=== PATIENT | male | born 1970 | race Caucasian/White ===

== ENCOUNTER 2024-05-03 09:46 | Emergency (ER) | payer OTHER, SELFPAY ==
[2024-05-03] VITALS (7 sets, daily range): BP systolic 108–136; BP diastolic 72–99
[2024-05-03 09:54] LABS: Glucose - Point of Care 128 mg/dl (70-99)
--- NOTE | 2024-05-03 10:33 | ED.GENMED ---
History of Present Illness
<Calin Pedraza Jr., PA-C - Last Filed: 05/03/24 17:40>
General
Chief Complaint: Fainting/Passed Out
Source: patient
Exam Limitations: none
Time Seen by Provider: 05/03/24 10:55
Nursing documentation reviewed up to this point in time: agreed with
History of Present Illness
History of Present Illness:
53-year-old male presenting to the emergency department today with concerns of syncopal episode while working. Was standing upright felt lightheaded passed out did hit his head. Patient is on Coumadin. Denies any chest pain shortness of breath
proceeding. Denies nausea vomiting numbness weakness.
Past History
<Laly Khoury BRASS PICKLER - Last Filed: >
Past History
ED Past Medical History: GERD, HTN and Other (Antiphospholipid antibody syndrome)
ED Past Surgical History: Orthopedic
Social History
Tobacco: Non-smoker
Alcohol: None
Drug: None
Personal:
Living: with family
Employment: Employed
Family History
Family History: Hypertension
Review of Systems
<Calin Pedraza Jr., PA-C - Last Filed: 05/03/24 17:40>
Review of Systems
Allergies reviewed?: Yes
All Other Systems: ROS reviewed and negative except as documented in HPI and ROS
Phy Exam
<Calin Pedraza Jr., PA-C - Last Filed: 05/03/24 17:40>
Physical Exam
Physical Exam:
GENERAL: Alert , in no apparent distress
EYE: pupils equal and reactive
NECK: Supple, no significant adenopathy.
ENT: o/p clr, mmm.
CARDIAC: Regular rate and rhythm .
LUNGS: Clear breath sounds bilaterally, no acute respiratory distress, no wheezes/rales/rhonchi
ABDOMEN: Soft, without focal tenderness, no r/g, no cvat
NEUROLOGICAL: Alert and oriented, no focal neuro deficits
SKIN: Warm and dry, skin intact.
MUSCULOSKELETAL: No edema, well perfused.
PSYCH: Normal and appropriate interaction.
Course
<Calin Pedraza Jr., JAILENE - Last Filed: 05/03/24 17:40>
Orders/Labs/Results
Orders:
Orders
05/03/24
Electrocardiogram (*1) Stat
Reason for Study: Chest Pain
Comment: DONE NO ORDER ENTERED
05/03/24 10:[address] [CT Head W/o Iv Contrast] Urgent
Comment:
Reason For Exam: fall on thinners
05/03/24 11:13
Complete Blood Count/With Diff Urgent
Comprehensive Metabolic Panel Urgent
Troponin I Urgent
05/03/24 12:14
Prothrombin Time Urgent
05/03/24 12:31
CT Head & Neck Angio W/wo IV Urgent
Comment:
Reason For Exam: neck pain right side, syncope today tinglingleg
05/03/24 16:48
EKG [Electrocardiogram (*1)] Urgent
Reason for Study: Other
Other Reason for Exam: repeat trop
EKG- Treatment ONCE
05/03/24 16:51
Troponin I Urgent
Abnormal Lab Results
05/03/24 05/03/24 05/03/24
09:53 11:13 12:14
WBC 12.5 H 10^3/uL
(4.8-10.8)
Abs Immat Gran (auto) 0.1 H 10^3/uL
(0-0.05)
Absolute Neuts (auto) 9.8 H 10^3/uL
(1.4-6.5)
Absolute Monos (auto) 0.8 H 10^3/uL
(0.1-0.6)
Neutrophils % 78.4 H %
(42.2-75.2)
Lymphocytes % 13.3 L %
(20.5-51.1)
PT 46.9 H Sec
(11.4-14.6)
INR 5.17 H*
Glucose 106 H mg/dl
(70-99)
POC Glucose 128 H mg/dl
(70-99)
05/03/24 11:13
05/03/24 11:13
Vital Signs
Initial and Last Documented VS:
Initial Vital Signs
Temp Pulse Resp BP Pulse Ox
98.5 F 63 18 108/72 99
05/03/24 10:09 05/03/24 10:09 05/03/24 10:09 05/03/24 10:09 05/03/24 10:09
Last Documented Vital Signs
Temp Pulse Resp BP Pulse Ox
98.5 F 62 17 122/83 95
05/03/24 10:09 05/03/24 16:45 05/03/24 16:45 05/03/24 16:00 05/03/24 16:45
<Laly Khoury, BRASS PICKLER - Last Filed: >
Orders/Labs/Results
Orders:
Orders
05/03/24
Electrocardiogram (*1) Stat
Reason for Study: Chest Pain
Comment: DONE NO ORDER ENTERED
05/03/24 10:[address] [CT Head W/o Iv Contrast] Urgent
Comment:
Reason For Exam: fall on thinners
05/03/24 11:13
Complete Blood Count/With Diff Urgent
Comprehensive Metabolic Panel Urgent
Troponin I Urgent
05/03/24 12:14
Prothrombin Time Urgent
05/03/24 12:31
CT Head & Neck Angio W/wo IV Urgent
Comment:
Reason For Exam: neck pain right side, syncope today tinglingleg
05/03/24 16:48
EKG [Electrocardiogram (*1)] Urgent
Reason for Study: Other
Other Reason for Exam: repeat trop
EKG- Treatment ONCE
05/03/24 16:51
Troponin I Urgent
Abnormal Lab Results
05/03/24 05/03/24 05/03/24
09:53 11:13 12:14
WBC 12.5 H 10^3/uL
(4.8-10.8)
Abs Immat Gran (auto) 0.1 H 10^3/uL
(0-0.05)
Absolute Neuts (auto) 9.8 H 10^3/uL
(1.4-6.5)
Absolute Monos (auto) 0.8 H 10^3/uL
(0.1-0.6)
Neutrophils % 78.4 H %
(42.2-75.2)
Lymphocytes % 13.3 L %
(20.5-51.1)
PT 46.9 H Sec
(11.4-14.6)
INR 5.17 H*
Glucose 106 H mg/dl
(70-99)
POC Glucose 128 H mg/dl
(70-99)
05/03/24 11:13
05/03/24 11:13
Vital Signs
Initial and Last Documented VS:
Initial Vital Signs
Temp Pulse Resp BP Pulse Ox
98.5 F 63 18 108/72 99
05/03/24 10:09 05/03/24 10:09 05/03/24 10:09 05/03/24 10:09 05/03/24 10:09
Last Documented Vital Signs
Temp Pulse Resp BP Pulse Ox
98.5 F 62 17 122/83 95
05/03/24 10:09 05/03/24 16:45 05/03/24 16:45 05/03/24 16:00 05/03/24 16:45
<Calin Pedraza Jr., PA-C - Last Filed: 05/03/24 17:40>
MDM/Problems Addressed
MDM/Problems Addressed:
53-year-old male presenting to the emergency department today with concerns of syncopal episode while at work. [place] lightheaded passed out was witnessed woke back up very quickly otherwise feels well at this point. No chest pain palpitations or
shortness of breath proceeding. Vital signs normal on arrival labs without acute abnormalities other than elevated INR of 5.17. He is taking this due to a history of antiphospholipid syndrome. He has not had an INR in the last few months.
Patient was advised to hold his Coumadin and follow-up closely with his outpatient doctor for reassessment of this. Otherwise he had a head CT without emergent findings. He did claim to have some mild right-sided neck pain. CT angiogram was
performed of the neck and head without acute abnormalities as well. Patient without evidence of life-threatening cause. Stable for outpatient management return precautions given.
<Calni Pedraza Jr., PA-C - Last Filed: 05/03/24 17:40>
*Critical Care Note
Total Time (30-74mins, 75-104mins- exclusive of procedures): Not Applicable
ED Attending Note
<Laly Khoury BRASS PICKLER - Last Filed: >
-
Portions of this chart may have been created with voice recognition software.� Occasional wrong word or��sound alike� substitutions may have occurred due to the inherent limitations of voice recognition software.
Discharge Plan
Departure
Patient Disposition: Home (Routine Discharge)
Date of Disposition: 05/03/24
Time of Disposition: 17:13
Patient with high blood pressure during this ER visit?: No
Condition: Good
Covid-19: Not Applicable
Discharge Problem:
Syncope, Supratherapeutic INR
Instructions: Syncope (Fainting) (DC)
Prescriptions:
New
zolpidem 10 mg tablet
10 mg PO HS PRN (Reason: Sleep) Qty: 10 0RF
No Action
warfarin 7.5 mg Tablet
7.5 mg PO SuTuWeFrSa@0800
amlodipine [Norvasc] 10 mg Tablet
10 mg PO DAILY
paroxetine HCl [Paxil] 20 mg Tablet
20 mg PO DAILY
pantoprazole [Protonix] 40 mg Tablet,Delayed Release (Dr/Ec)
40 mg PO DAILY
warfarin 5 mg Tablet
5 mg PO MOTH@0800
zolpidem [Ambien] 10 mg Tablet
10 mg PO HS
losartan 100 mg Tablet
100 mg PO DAILY
omeprazole 20 mg Tablet,Delayed Release (Dr/Ec)
20 mg PO DAILY
testosterone 20.25 mg/1.25 gram (1.62 %) gel in metered-dose pump
1 pump topical DAILY
Referrals:
Atif Tabor MD [Family Provider] -
Hawk Simeon MD [Active] - Follow up in 5-7 days
Stand Alone Forms: Return to Work
Activity Restrictions/Additional Instructions:
You came to the emergency department today with concerns of a syncopal episode. Here you had a reassuring assessment your INR was elevated to 5.17. Please skip your dose tomorrow and resume at 5 mg daily. You will need to follow-up closely with
your offender employment specialist for reassessment. Return immediately for any worsening, new or concerning symptoms.
Interventions
Interventions:
*Risk Screen - Suicide Last Done: 05/03/24 10:09
*General Assessment Last Done: 05/03/24 10:09
*Neglect/Abuse Screening Last Done: 05/03/24 10:09
ED- Fall Risk Assessment Last Done: 05/03/24 11:24
*ED COVID-19 Vaccine History Last Done: 05/03/24 11:42
*Nursing Disposition Last Done: 05/03/24 17:24
ED- Cardiac Assessment Last Done: 05/03/24 11:24
ED- Neurological Assessment Last Done: 05/03/24 11:24
Discharge Date and Time
Discharge Date/Time: 05/03/24 17:25
Print Language: PORTUGUESE
[2024-05-03 11:19] LABS: % Basophils 0.5 % (0-2); % Eosinophils 0.6 % (0-6); % Immature Granulocytes 0.5 % (0-0.5); % Lymphocytes 13.3 % (20.5-51.1); % Monocytes 6.7 % (1.7-9.3); % Neutrophils 78.4 % (42.2-75.2); Absolute Basophils 0.1 10^3/uL (0-0.2); Absolute Eosinophils 0.1 10^3/uL (0-0.7); Absolute Immature Granulocytes 0.1 10^3/uL (0-0.05); Absolute Lymphocytes 1.7 10^3/uL (1.2-3.4); Absolute Monocytes 0.8 10^3/uL (0.1-0.6); Absolute Neutrophils 9.8 10^3/uL (1.4-6.5); Hematocrit 46.8 % (39.0-52.0); Hemoglobin 16.1 g/dL (13.0-18.0); Mean Corp Hgb Conc. 34.4 g/dL (33.0-37.0); Mean Corpuscular Hgb 28.6 pg (27.0-31.0); Mean Corpuscular Volume 83.1 fL (80.0-94.0); Mean Platelet Volume 9.1 fL (7.4-10.4); Nucleated Red Blood Cells % 0 % (-); Platelet Count 296 10^3/uL (130-400); Red Blood Cell Count 5.63 10^6/uL (4.70-6.10); Red Cell Dist. Width 12.8 % (11.5-14.5); White Blood Cell Count 12.5 10^3/uL (4.8-10.8)
[2024-05-03 11:38] LABS: ALT (SGPT) 19 U/L (0-50); AST (SGOT) 19 U/L (17-59); Albumin 4.9 g/dl (3.5-5.0); Alkaline Phosphatase 75 U/L (38-126); Blood Urea Nitrogen 14 mg/dl (9-20); Calcium 9.8 mg/dl (8.4-10.2); Carbon Dioxide 24 mmol/L (22-30); Chloride 104 mmol/L (98-107); Glucose 106 mg/dl (70-99); Potassium 4.1 mmol/L (3.5-5.1); Sodium 141 mmol/L (135-145); Total Bilirubin 0.6 mg/dl (0.2-1.3); Total Protein 7.7 g/dl (6.3-8.2); eGFR > 60.00
[2024-05-03 11:48] LABS: Troponin I < 0.012 ng/ml
[2024-05-03 12:33] LABS: PT 46.9 Sec (11.4-14.6)
[2024-05-03 12:38] LABS: INR 5.17
[2024-05-03 17:27] LABS: Troponin I < 0.012 ng/ml
== END 2024-05-03 17:25 | disposition home or self-care (01) ==
LOC: EMR 09:46
PROVIDERS: Physician Assistant; Registered Nurse; EMERGENCY PHYSICIAN Student in an Organized Health Care Education/Training Program; FAMILY PHYSICIAN Family Medicine
DX: R55 Syncope and collapse (principal); R79.1 Abnormal coagulation profile; K21.9 Gastro-esophageal reflux disease without esophagitis; I10 Essential (primary) hypertension; Z79.01 Long term (current) use of anticoagulants; Z82.49 Family history of ischemic heart disease and other diseases of the circulatory system
CPT/HCPCS: 99284; 70450; 70496; 70498; 80053; 82962; 84484; 85025; 85610; 93005; Q9967

== ENCOUNTER → 2024-05-13 12:10 | Outpatient (REF) | payer OTHER, SELFPAY ==
[2024-05-13 12:46] LABS: INR 1.66; PT 20.1 Sec (11.4-14.6)
== END ==
LOC: REG 12:10
PROVIDERS: ATTENDING PHYSICIAN Internal Medicine Hematology & Oncology; FAMILY PHYSICIAN Family Medicine
DX: I82.461 Acute embolism and thrombosis of right calf muscular vein (principal); D68.59 Other primary thrombophilia; D68.62 Lupus anticoagulant syndrome
CPT/HCPCS: 36415; 85610

== ENCOUNTER → 2024-05-25 16:34 | Outpatient (REF) | payer OTHER, SELFPAY ==
[2024-05-25 17:00] LABS: INR 2.37
== END ==
LOC: REG 16:34
PROVIDERS: ATTENDING PHYSICIAN Internal Medicine Hematology & Oncology; FAMILY PHYSICIAN Family Medicine
DX: I82.461 Acute embolism and thrombosis of right calf muscular vein (principal); D68.59 Other primary thrombophilia; D68.62 Lupus anticoagulant syndrome
CPT/HCPCS: 36415; 85610

== ENCOUNTER → 2024-07-27 15:43 | Outpatient (REF) | payer OTHER, SELFPAY | LOC: RAD 15:43 | PROVIDERS: ATTENDING PHYSICIAN Family Medicine | DX: I82.409 Acute embolism and thrombosis of unspecified deep veins of unspecified lower extremity (principal) | CPT/HCPCS: 93971 ==